=== PATIENT | male | born 1985 | race African-American/Black ===

== ENCOUNTER 2024-12-27 06:58 | Emergency (ER) | payer OTHER ==
[~2024-12-27] VITALS: Ht 177.8 cm; Wt 101.2 kg
[2024-12-27] MEDS ORDERED: AMOX-430 PO (07:16)
[2024-12-27] MEDS ORDERED: DOXY100C2 PO (07:16)
[2024-12-27 07:29] VITALS: BP 167/93; TEMP 98.4; O2SAT 96
== END 2024-12-27 07:30 | disposition home or self-care (01) ==
LOC: ER 07:07
DX: K61.0 Anal abscess (principal)